=== PATIENT | female | born 1960 | race Caucasian/White ===

== ENCOUNTER 2016-07-08 07:06 | Day surgery (SDC) | payer BC ==
[~2016-07-08 07:06] MED LIST: Lactated Ringers 1,000 ML IV SCH
[2016-07-08] MEDS ORDERED: Lidocaine 2% 5 ML SDV ONE (07:11)
[2016-07-08] MEDS ORDERED: fentaNYL 100 MCG/2 ML SDV ONE ×2 (07:12→10:02)
[2016-07-08] MEDS ORDERED: Propofol 200 MG/20 ML SDV ONE ×4 (07:12→09:46)
--- NOTE | 2016-07-08 07:34 | PCM.PREANE ---
Preanesthetic Assessment - Anesthesia/Transfusion/Family Hx Anesthesia History: Prior Anesthesia Without Reaction Other Type of Anesthesia Reaction Comment: Nausea post anesthesia, reports history of some motion sickness Family History of Anesthesia Reaction: No Transfusion History: No Prior Transfusion(s) - Review of Systems General: No Symptoms Pulmonary: No Symptoms Cardiovascular: No Symptoms Gastrointestinal: No symptoms Neurological: No Symptoms Other: Reports: Anxiety - Physical Assessment NPO Status Date: 07/07/16 O2 Sat by Pulse Oximetry: 96 Respiratory Rate: 16 Vital Signs: Last Vital Signs Temp 36.4 C 07/08/16 07:20 Pulse 74 07/08/16 07:20 Resp 16 07/08/16 07:20 BP 128/73 07/08/16 07:20 Pulse Ox 96 07/08/16 07:20 Height: 1.7 m Weight: 121.563 kg ASA Class: 2 Mental Status: Alert & Oriented x3 Airway Class: Mallampati = 2 Dentition: Reports: Normal Dentition ROM/Head Extension: Full Lungs: Clear to auscultation Cardiovascular: Regular Rate - Allergies Allergies/Adverse Reactions: Allergies Allergy/AdvReac Type Severity Reaction Status Date / Time No Known Allergies Allergy Verified 08/10/13 14:48 - Acknowledgements Anesthesia Type Planned: MAC Pt an Appropriate Candidate for the Planned Anesthesia: Yes Alternatives and Risks of Anesthesia Discussed w Pt/Guardian: Yes Pt/Guardian Understands and Agrees with Anesthesia Plan: Yes PreAnesthesia Questionnaire HEENT History: Reports: Allergic rhinitis, Other (see below) Other HEENT History: wears glasses Cardiovascular History: Reports: Heart murmur Other Cardiovascular History: states hx of murmur Gastrointestinal History: Reports: Colon polyp, GERD Genitourinary History: Reports: None [employer]IC History: Reports: Musculoskeletal History: Reports: Arthritis Psychiatric History: Reports: Anxiety Endocrine/Metabolic History: Reports: Obesity/BMI 30+ - Past Surgical History Head Surgeries/Procedures: Reports: None HEENT Surgical History: Reports: Tonsillectomy GI Surgical History: Reports: Colonoscopy Female Surgical History: Reports: Endometrial ablation, Tubal ligation Musculoskeletal Surgical History: Reports: Knee replacement Other Musculoskeletal Surgeries/Procedures:: ana luisa knee replacement - SUBSTANCE USE Smoking Status *Q: Current Every Day Smoker Tobacco Use Within Last Twelve Months: Cigarettes Days Per Week of Alcohol Use: 0 Number of Drinks Per Day: 0 Total Drinks Per Week: 0 Recreational Drug Use History: No - HOME MEDS Home Medications: Home Meds LORazepam [Ativan] 1 mg PO ASDIRECTED PRN 09/23/13 [History] Ibuprofen 2 tab PO ASDIRECTED PRN 07/03/16 [History] - CURRENT (IN HOUSE) MEDS Current Meds: Current Medications Lactated Ringer's (Ringers, Lactated) 1,000 mls @ 125 mls/hr IV ASDIRECTED DARA Last Admin: 07/08/16 07:24 Dose: 125 mls/hr Discontinued Medications Fentanyl (Sublimaze) Confirm Administered Dose 100 mcg .ROUTE .STK-MED ONE Stop: 07/08/16 07:13 Lidocaine (Xylocaine-Mpf 2%) Confirm Administered Dose 5 ml .ROUTE .STK-MED ONE Stop: 07/08/16 07:12 Propofol (Diprivan 20 Ml) Confirm Administered Dose 400 mg .ROUTE .STK-MED ONE Stop: 07/08/16 07:13 Preanesthetic Assessment - ANESTHESIA/TRANSFUSION/FAMILY HX Anesthesia/Transfusion History: Prior Anesthesia Other Type of Anesthesia Reaction Comment: Nausea post anesthesia, reports history of some motion sickness Family History of Anesthesia Reaction: No - PHYSICAL ASSESSMENT O2 Sat by Pulse Oximetry: 96 RR: 16 Vital Signs: Last Vital Signs Temp 36.4 C 07/08/16 07:20 Pulse 74 07/08/16 07:20 Resp 16 07/08/16 07:20 BP 128/73 07/08/16 07:20 Pulse Ox 96 07/08/16 07:20 Height: 1.7 m Weight: 121.563 kg - ALLERGIES Allergies/Adverse Reactions: Allergies Allergy/AdvReac Type Severity Reaction Status Date / Time No Known Allergies Allergy Verified 08/10/13 14:48
[2016-07-08] MEDS ORDERED: Midazolam 1 MG/ML 2 ML SDV ONE (08:37)
[2016-07-08] MEDS ORDERED: cefOXitin 2 GM in Premix Bag 1 BAG IV ONE (08:42)
[2016-07-08] MEDS ORDERED: cefOXitin 1 GM Vial ONE (08:42)
[2016-07-08] MEDS ORDERED: Phenylephrine/Normal Saline 100 MCG/ML 10 ML Syringe ONE (09:05)
[2016-07-08] MEDS ORDERED: ePHEDrine 50 MG/ML SDV ONE (09:44)
--- NOTE | 2016-07-08 10:20 | PCM.OPNOTE ---
- General Post-Op/Procedure Note Date of Surgery/Procedure: 07/08/16 Operative Procedure(s): Colonoscopy with snare ascending colon polypectomy, cold ascending colon polypectomy x3, cold ascending colon polypectomy x2, and cold sigmoid polypectomy. Pre Op Diagnosis: Personal history of colon polyps Post-Op Diagnosis: Ascending colon polyps x4. Descending colon polyps x2. Sigmoid polyp. Anesthesia Technique: MAC (ASA II) Primary Surgeon: Terry Ferrer Condition: Good Free Text/Narrative:: Dictation [id number]
[2016-07-08] MEDS ORDERED: Lactated Ringers 1,000 ML IV SCH (10:30)
[2016-07-08 10:31] VITALS: BP 115/71
--- NOTE | 2016-07-08 10:41 | PCM.POSTAN ---
POST ANESTHESIA ASSESSMENT - MENTAL STATUS Mental Status: alert, oriented - RESPIRATORY Respiratory Status: respiratory rate WNL - CARDIOVASCULAR CV Status: pulse rate WNL - GASTROINTESTINAL GI Status: no symptoms - POST OP HYDRATION Hydration Status: adequate & stable
--- NOTE | 2016-07-08 10:42 | PCM48HPAN ---
Post Anesthesia Note - EVALUATION WITHIN 48HRS OF ANESTHETIC Vital Signs in Normal Range: Yes Patient Participated in Evaluation: Yes Respiratory Function Stable: Yes Airway Patent: Yes Cardiovascular Function Stable: Yes Hydration Status Stable: Yes Pain Control Satisfactory: Yes Nausea and Vomiting Control Satisfactory: Yes Mental Status Recovered: Yes
--- NOTE | 2016-07-08 14:17 | OR ---
SURGEON: Terry Ferrer M.D. DATE OF PROCEDURE: 07/08/2016 OPERATION PERFORMED: Colonoscopy with snare ascending colon polypectomy and cold ascending colon polypectomy x3, cold descending colon polypectomy x2, and cold sigmoid colonoscopy. ANESTHESIA: MAC. ASA CLASSIFICATION: II. PREOPERATIVE DIAGNOSIS: Personal history of colon polyps. POSTOPERATIVE DIAGNOSIS: Multiple ascending colon, descending colon, and sigmoid polyp. DESCRIPTION OF PROCEDURE: The patient was taken to the endoscopy room, positioned on the endoscopy table in the left lateral decubitus position. Time-out was called for appropriate identification of the patient and procedure. Monitored anesthesia care was provided. The colonoscope was inserted into the rectum and advanced with moderate difficulty to the cecum, where the colonoscope was retroflexed to visualize the ascending colon from below. The colonoscope was then straightened and slowly withdrawn. The patient had multiple polyps in the ascending colon. The largest one was removed with a snare electrocautery. Smaller polyps were removed with the cold biopsy forceps. Hepatic flexure, transverse colon, and splenic flexure showed no tumors, polyps, diverticula, or angiodysplastic changes. Polyps were again encountered in the descending colon and sigmoid colon and removed separately and sent separately with the cold biopsy forceps. A few small scattered sigmoid diverticula were noted. The colonoscope was withdrawn to the rectum. No polyps were encountered in the rectum. The colonoscope was retroflexed to visualize the anal orifice from above. No tumors or polyps were seen and no acute hemorrhoidal changes were noted. The colonoscope was then straightened, the rectum aspirated, and the colonoscope was removed. The patient tolerated the procedure well and was taken to recovery room in stable condition. EDILBERTO ACHARYA /[id number]
== END 2016-07-08 10:50 | disposition home or self-care (01) ==
LOC: MW.SDS 07:06
PROVIDERS: ATTEND Surgery
PROC: 0DBM8ZZ Excision of Descending Colon, Via Natural or Artificial Opening Endoscopic (ICD-10-PCS; principal; 2016-07-08)
PROC: 0DBN8ZZ Excision of Sigmoid Colon, Via Natural or Artificial Opening Endoscopic (ICD-10-PCS; 2016-07-08)
PROC: 0DBK8ZZ Excision of Ascending Colon, Via Natural or Artificial Opening Endoscopic (ICD-10-PCS; 2016-07-08)
DX: D12.2 Benign neoplasm of ascending colon (principal); D12.4 Benign neoplasm of descending colon; K63.5 Polyp of colon; K57.30 Diverticulosis of large intestine without perforation or abscess without bleeding; F41.9 Anxiety disorder, unspecified; E66.01 Morbid (severe) obesity due to excess calories; M17.0 Bilateral primary osteoarthritis of knee; F17.210 Nicotine dependence, cigarettes, uncomplicated; Z86.19 Personal history of other infectious and parasitic diseases; Z86.010 Personal history of colon polyps; Z80.0 Family history of malignant neoplasm of digestive organs; Z96.653 Presence of artificial knee joint, bilateral; Z98.51 Tubal ligation status; Z98.890 Other specified postprocedural states; Z68.41 Body mass index [BMI] 40.0-44.9, adult
CPT/HCPCS: 45380; 45385; J0694; J2250; J3010; J7120; 88305; J2704

== ENCOUNTER 2017-07-28 09:51 | Day surgery (SDC) | payer BC ==
[~2017-07-28 09:51] MED LIST changes: +Midazolam 1 MG/ML 2 ML SDV ONE; +Propofol 200 MG/20 ML SDV ONE; +fentaNYL 100 MCG/2 ML SDV ONE
--- NOTE | 2017-07-28 10:34 | PCM.PREANE ---
Preanesthetic Assessment - Anesthesia/Transfusion/Family Hx Anesthesia History: Prior Anesthesia Without Reaction Other Type of Anesthesia Reaction Comment: Nausea post anesthesia, reports history of some motion sickness Family History of Anesthesia Reaction: No Transfusion History: No Prior Transfusion(s) Intubation History: Unknown - Review of Systems General: No Symptoms Pulmonary: No Symptoms Cardiovascular: No Symptoms Gastrointestinal: Other (h/o multiple colon polyps '16) Neurological: No Symptoms Other: Reports: None - Physical Assessment Height: 1.7 m Weight: 118.841 kg ASA Class: 2 Mental Status: Alert & Oriented x3 Airway Class: Mallampati = 2 Dentition: Reports: Normal Dentition, Claflin(s) (x2 upper front) Thyro-Mental Finger Breadths: 2 Mouth Opening Finger Breadths: 3 ROM/Head Extension: Full Lungs: Clear to Auscultation, Normal Respiratory Effort Cardiovascular: Regular Rate, Regular Rhythm - Allergies Allergies/Adverse Reactions: Allergies Allergy/AdvReac Type Severity Reaction Status Date / Time No Known Allergies Allergy Verified 07/23/17 09:20 - Blood Blood Available: No - Anesthesia Plan Pre-Op Medication Ordered: None - Acknowledgements Anesthesia Type Planned: MAC Pt an Appropriate Candidate for the Planned Anesthesia: Yes Alternatives and Risks of Anesthesia Discussed w Pt/Guardian: Yes Pt/Guardian Understands and Agrees with Anesthesia Plan: Yes PreAnesthesia Questionnaire HEENT History: Reports: Allergic Rhinitis, Other (See Below) Other HEENT History: wears glasses Cardiovascular History: Reports: Heart Murmur Other Cardiovascular History: states hx of murmur Gastrointestinal History: Reports: Colon Polyp (multiple '16), GERD Genitourinary History: Reports: None [employer]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: Musculoskeletal History: Reports: Arthritis Psychiatric History: Reports: Anxiety Endocrine/Metabolic History: Reports: Obesity/BMI 30+ - Past Surgical History Head Surgeries/Procedures: Reports: None HEENT Surgical History: Reports: Tonsillectomy GI Surgical History: Reports: Colonoscopy () Female Surgical History: Reports: Section, Endometrial Ablation, Tubal Ligation Musculoskeletal Surgical History: Reports: Knee Replacement Other Musculoskeletal Surgeries/Procedures:: ana luisa knee replacement - SUBSTANCE USE Smoking Status *Q: Current Every Day Smoker (1 ppd) Tobacco Use Within Last Twelve Months: Cigarettes Days Per Week of Alcohol Use: 0 Number of Drinks Per Day: 0 Total Drinks Per Week: 0 Recreational Drug Use History: No - HOME MEDS Home Medications: Home Meds LORazepam [Ativan] 1 mg PO ASDIRECTED PRN 09/23/13 [History] Ibuprofen 2 tab PO ASDIRECTED PRN 07/03/16 [History] - CURRENT (IN HOUSE) MEDS Current Meds: Current Medications Lactated Ringer's (Ringers, Lactated) 1,000 mls @ 125 mls/hr IV ASDIRECTED DARA Last Admin: 07/28/17 10:26 Dose: 125 mls/hr Discontinued Medications Fentanyl (Sublimaze) Confirm Administered Dose 100 mcg .ROUTE .STK-MED ONE Stop: 07/28/17 08:28 Midazolam HCl (Versed 1 Mg/Ml) Confirm Administered Dose 2 mg .ROUTE .STK-MED ONE Stop: 07/28/17 08:28 Propofol (Diprivan 20 Ml) Confirm Administered Dose 200 mg .ROUTE .STK-MED ONE Stop: 07/28/17 08:28
[2017-07-28] MEDS ORDERED: cefOXitin 1 GM Vial ONE (11:25)
[2017-07-28] MEDS ORDERED: Propofol 200 MG/20 ML SDV ONE ×3 (11:27→11:50)
[2017-07-28] MEDS ORDERED: Midazolam 1 MG/ML 2 ML SDV ONE (11:31)
[2017-07-28] MEDS ORDERED: Lactated Ringers 1,000 ML IV SCH (12:15)
--- NOTE | 2017-07-28 12:18 | PCM.OPNOTE ---
- General Post-Op/Procedure Note Date of Surgery/Procedure: 07/28/17 Operative Procedure(s): Colonoscopy with multiple cold ascending colon, sigmoid colon and rectal polypectomies Pre Op Diagnosis: Personal history of colon polyps Post-Op Diagnosis: Ascending colon, sigmoid and rectal polyps. Anesthesia Technique: MAC (ASA III) Primary Surgeon: Terry Ferrer Condition: Good Free Text/Narrative:: Dictation [id number] CPT CODE [id number]
--- NOTE | 2017-07-28 12:43 | PCM48HPAN ---
Post Anesthesia Note - EVALUATION WITHIN 48HRS OF ANESTHETIC Vital Signs in Normal Range: Yes Patient Participated in Evaluation: Yes Respiratory Function Stable: Yes Airway Patent: Yes Cardiovascular Function Stable: Yes Hydration Status Stable: Yes Pain Control Satisfactory: Yes Nausea and Vomiting Control Satisfactory: Yes Mental Status Recovered: Yes Resp Rate: 12 - COMMENTS/OBSERVATIONS Free Text/Narrative:: no anesthesia problems
[2017-07-28 13:04] VITALS: BP 111/69
--- NOTE | 2017-07-28 13:42 | OR ---
SURGEON: Terry Ferrer M.D. DATE OF PROCEDURE: 07/28/2017 OPERATION PERFORMED: Colonoscopy with multiple cold polypectomies from the ascending colon, sigmoid colon, and rectum. ANESTHESIA: MAC. ASA CLASSIFICATION: III. PREOPERATIVE DIAGNOSES: 1. Personal history of colon polyps. 2. Family history of colon cancer. POSTOPERATIVE DIAGNOSIS: Multiple polyps in the ascending colon, sigmoid colon, and rectum. DESCRIPTION OF PROCEDURE: The patient was taken to the endoscopy room and positioned on the endoscopy table in the left lateral decubitus position. Time-out was called for appropriate identification of the patient and procedure. Monitored anesthesia care was provided. The colonoscope was inserted into the rectum and advanced with moderate difficulty to the cecum where the colonoscope was retroflexed to visualize the ascending colon from below. The cecum was identified by internal landmarks and external pressure. At least three polyps were encountered in the ascending colon and removed with the cold biopsy forceps. The remainder of the ascending colon, hepatic flexure, transverse colon, splenic flexure showed no tumors, polyps, diverticula, or angiodysplastic changes. Several polyps were encountered in the sigmoid colon as the scope was withdrawn and again removed with the cold biopsy forceps. No diverticular changes were noted. There was no stricture or spasm noted in the sigmoid colon. Once the colonoscope was withdrawn to the rectum, again polyps were encountered and removed with the cold biopsy forceps. Once the colonoscope was withdrawn to the distal rectum, it was retroflexed to visualize the anal orifice from above. No tumors, polyps, or acute hemorrhoidal changes were noted. The colonoscope was then straightened, the rectum aspirated, and the colonoscope removed. The patient tolerated the procedure well and was taken to recovery room in stable condition. EDILBERTO / MARCK /[id number]
== END 2017-07-28 12:35 | disposition home or self-care (01) ==
LOC: MW.SDS 09:51
PROVIDERS: ATTEND Surgery
DX: Z09 Encounter for follow-up examination after completed treatment for conditions other than malignant neoplasm (principal); D12.2 Benign neoplasm of ascending colon; K63.5 Polyp of colon; K62.1 Rectal polyp; K21.9 Gastro-esophageal reflux disease without esophagitis; M19.90 Unspecified osteoarthritis, unspecified site; F41.9 Anxiety disorder, unspecified; F17.210 Nicotine dependence, cigarettes, uncomplicated; E66.01 Morbid (severe) obesity due to excess calories; Z68.41 Body mass index [BMI] 40.0-44.9, adult; Z86.010 Personal history of colon polyps; Z80.0 Family history of malignant neoplasm of digestive organs
CPT/HCPCS: 00811; 88305; J0694; J2250; J2704; J3010; J7120

== ENCOUNTER 2017-09-07 11:01 | Emergency (ER) | payer BC ==
[2017-09-07 11:12] VITALS: BP 114/61
--- NOTE | 2017-09-07 11:27 | EDM.PDOC ---
ED HPI GENERAL MEDICAL PROBLEM - General Chief Complaint: Respiratory Problem Stated Complaint: COUGH Time Seen by Provider: 09/07/17 11:15 - History of Present Illness INITIAL COMMENTS - FREE TEXT/NARRATIVE: HISTORY AND PHYSICAL: History of present illness: The patient is a 57-year-old female who presents with a three-month history of sinus congestion and drainage sore throat and swollen glands in an occasional cough without abdominal pain vomiting or diarrhea or objective fevers and requests care. The patient says she has a provider at [facility], Dr. Marley, but she has not scheduled to see him because she felt the symptoms will go away . The patient denies any ill contacts and has no chronic medical problems. She's been eating and drinking normally but there is pain with swallowing. The patient says she has tried some [id number] meds and that has not helped. The patient has a history of a tonsillectomy in the past and she is not feeling rundown or overly weak and lightheaded or dizzy. Review of systems: As per history of present illness and below otherwise all systems reviewed and negative. Past medical history: As per history of present illness and as reviewed below otherwise noncontributory. Surgical history: As per history of present illness and as reviewed below otherwise noncontributory. Social history: No reported history of drug or alcohol abuse. Family history: As per history of present illness and as reviewed below otherwise noncontributory. Physical exam: General: Well-developed well-nourished female who is nontoxic and is not breathless with speaking nor is her voice hoarse. She does have nasal quality to voice. HEENT: Atraumatic, normocephalic, pupils reactive, negative for conjunctival pallor or scleral icterus, mucous membranes moist, throat clear of exudates and uvula is midline, there is minimal oropharyngeal erythema there is minimal cervical adenopathy no posterior adenopathy and no nuchal rigidity, there is minimal sinus tenderness on palpation, the nasal turbinates are boggy bilaterally left greater than right, neck supple, nontender, trachea midline. Lungs: Clear to auscultation, breath sounds equal bilaterally, chest nontender. Heart: S1S2, regular rate and rhythm no overt murmurs Abdomen: Soft nondistended nontender on palpation and bowel sounds are normoactive Pelvis: Deferred Genitourinary: Deferred. Rectal: Deferred. Extremities: Atraumatic, negative for cords or calf pain. Neurovascular unremarkable. Neuro: Awake, alert, oriented. Cranial nerves II through XII unremarkable. Cerebellum unremarkable. Motor and sensory unremarkable throughout. Exam nonfocal. Diagnostics: [] Therapeutics: [] Impression: Sinusitis/rhinitis/pharyngitis Definitive disposition and diagnosis as appropriate pending reevaluation and review of above. ribs Pain Score (Numeric/FACES): 3 - Related Data Allergies Allergy/AdvReac Type Severity Reaction Status Date / Time No Known Allergies Allergy Verified 09/07/17 11:10 Home Meds: Home Meds LORazepam [Ativan] 1 mg PO ASDIRECTED PRN 09/23/13 [History] Ibuprofen 2 tab PO ASDIRECTED PRN 07/03/16 [History] Past Medical History HEENT History: Reports: Allergic Rhinitis, Other (See Below) Other HEENT History: wears glasses Cardiovascular History: Reports: Heart Murmur Other Cardiovascular History: states hx of murmur Respiratory History: Reports: None Gastrointestinal History: Reports: Colon Polyp, GERD Genitourinary History: Reports: None [employer]OC[employer] 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: Reports: Musculoskeletal History: Reports: Arthritis Neurological History: Reports: None Psychiatric History: Reports: Anxiety Endocrine/Metabolic History: Reports: Obesity/BMI 30+ Hematologic History: Reports: None Immunologic History: Reports: None Oncologic (Cancer) History: Reports: None Dermatologic History: Reports: None - Past Surgical History Head Surgeries/Procedures: Reports: None HEENT Surgical History: Reports: Tonsillectomy Cardiovascular Surgical History: Reports: None Respiratory Surgical History: Reports: None GI Surgical History: Reports: Colonoscopy Female Surgical History: Reports: Section, Endometrial Ablation, Tubal Ligation Endocrine Surgical History: Reports: None Neurological Surgical History: Reports: None Musculoskeletal Surgical History: Reports: Knee Replacement Other Musculoskeletal Surgeries/Procedures:: ana luisa knee replacement Oncologic Surgical History: Reports: None Dermatological Surgical History: Reports: None Social & Family History - Family History Family Medical History: Noncontributory - Tobacco Use Smoking Status *Q: Current Every Day Smoker Years of Tobacco use: 20 Packs/Tins Daily: 0.2 - Caffeine Use Caffeine Use: Reports: Coffee - Recreational Drug Use Recreational Drug Use: No ED ROS GENERAL - Review of Systems Review Of Systems: ROS reveals no pertinent complaints other than HPI. ED EXAM, GENERAL - Physical Exam Exam: See Below (See dictation) Course - Vital Signs Last Recorded V/S: Last Vital Signs Temp 36.3 C 09/07/17 11:10 Pulse 91 09/07/17 11:10 Resp 18 09/07/17 11:10 BP 114/61 09/07/17 11:10 Pulse Ox 95 09/07/17 11:10 Departure - Departure Time of Disposition: 11:25 Disposition: Home, Self-Care 01 Condition: Good Clinical Impression: Pharyngitis Qualifiers: Pharyngitis/tonsillitis etiology: unspecified etiology Qualified Code(s): J02.9 - Acute pharyngitis, unspecified Sinusitis Qualifiers: Sinusitis location: unspecified location Chronicity: unspecified Qualified Code (s): J32.9 - Chronic sinusitis, unspecified - Discharge Information Additional Instructions: The following information is given to patients seen in the emergency department who are being discharged to home. This information is to outline your options for follow-up care. We provide all patients seen in our emergency department with a follow-up referral. The need for follow-up, as well as the timing and circumstances, are variable depending upon the specifics of your emergency department visit. If you don't have a primary care physician on staff, we will provide you with a referral. We always advise you to contact your personal physician following an emergency department visit to inform them of the circumstance of the visit and for follow-up with them and/or the need for any referrals to a consulting specialist. The emergency department will also refer you to a specialist when appropriate. This referral assures that you have the opportunity for followup care with a specialist. All of these measure are taken in an effort to provide you with optimal care, which includes your followup. Under all circumstances we always encourage you to contact your private physician who remains a resource for coordinating your care. When calling for followup care, please make the office aware that this follow-up is from your recent emergency room visit. If for any reason you are refused follow-up, please contact the [facility] emergency department at and ask to speak to the emergency department charge nurse. [address] [place] [address] [facility] Primary care- Internal Medicine and Family [place] [id number] [place] [address] Push fluids and rest and use [id number] Tylenol or ibuprofen for fevers and pain. Please take antibiotics until they are finished. Use [id number] Claritin or Nicolasa to help dry her sinuses out an [id number] Flonase to open up the nasal passages and promote drainage. Please call and follow-up with your provider in the clinic at [place] or one of our providers in the next few days for reevaluation and return here as needed and as discussed
--- NOTE | 2017-09-07 12:01 | EDM.PDOC ---
ED HPI GENERAL MEDICAL PROBLEM - General Chief Complaint: Respiratory Problem Stated Complaint: COUGH Time Seen by Provider: 09/07/17 11:15 - History of Present Illness INITIAL COMMENTS - FREE TEXT/NARRATIVE: HISTORY AND PHYSICAL: 57-year-old female presenting with coughing for the last 10 days History of present illness: History nonproductive she has been a smoker but he really has not smoked for the last 10 days she's been sick she's having wheezing at night She has utilized some Benadryl [id number] without relief. Review of systems: As per history of present illness and below otherwise all systems reviewed and negative. Past medical history: As per history of present illness and as reviewed below otherwise noncontributory. Surgical history: As per history of present illness and as reviewed below otherwise noncontributory. Social history: No reported history of drug or alcohol abuse. Family history: As per history of present illness and as reviewed below otherwise noncontributory. Physical exam: General: Well-developed well-nourished female who is nontoxic and is not breathless with speaking nor is her voice hoarse. She does have nasal quality to voice. She does cough after speaking to sentences. HEENT: Atraumatic, normocephalic, pupils reactive, negative for conjunctival pallor or scleral icterus, mucous membranes moist, throat clear of exudates and uvula is midline, there is minimal oropharyngeal erythema there is minimal cervical adenopathy no posterior adenopathy and no nuchal rigidity, there is minimal sinus tenderness on palpation, , neck supple, nontender, trachea midline. Lungs: Crackles and wheezing on auscultation, breath sounds equal bilaterally, chest nontender. Heart: S1S2, regular rate and rhythm no overt murmurs Abdomen: Soft nondistended nontender on palpation and bowel sounds are normoactive Pelvis: Deferred Genitourinary: Deferred. Rectal: Deferred. Extremities: Atraumatic, negative for cords or calf pain. Neurovascular unremarkable. Neuro: Awake, alert, oriented. Cranial nerves II through XII unremarkable. Cerebellum unremarkable. Motor and sensory unremarkable throughout. Exam nonfocal. Diagnostics: [] Therapeutics: [] Impression: Acute bronchiolitis Wheezing Plan: Discharge to home Medrol Dosepak Zithromax Diflucan Definitive disposition and diagnosis as appropriate pending reevaluation and review of above. Onset: Gradual Duration: Day(s): (10) Location: Reports: Chest Quality: Reports: Ache Severity: Moderate Improves with: Reports: None Worsens with: Reports: None ribs Pain Score (Numeric/FACES): 3 - Related Data Allergies Allergy/AdvReac Type Severity Reaction Status Date / Time No Known Allergies Allergy Verified 09/07/17 11:10 Home Meds: Home Meds LORazepam [Ativan] 1 mg PO ASDIRECTED PRN 09/23/13 [History] Ibuprofen 2 tab PO ASDIRECTED PRN 07/03/16 [History] Azithromycin [Zithromax] 250 mg PO DAILY #6 tab 09/07/17 [Rx] methylPREDNISolone [Medrol] 4 mg PO ASDIRECTED #1 dosepk 09/07/17 [Rx] Past Medical History HEENT History: Reports: Allergic Rhinitis, Other (See Below) Other HEENT History: wears glasses Cardiovascular History: Reports: Heart Murmur Other Cardiovascular History: states hx of murmur Respiratory History: Reports: None Gastrointestinal History: Reports: Colon Polyp, GERD Genitourinary History: Reports: None DIRECTOR OF INSTITUTIONAL GIVING History: Reports: Musculoskeletal History: Reports: Arthritis Neurological History: Reports: None Psychiatric History: Reports: Anxiety Endocrine/Metabolic History: Reports: Obesity/BMI 30+ Hematologic History: Reports: None Immunologic History: Reports: None Oncologic (Cancer) History: Reports: None Dermatologic History: Reports: None - Past Surgical History Head Surgeries/Procedures: Reports: None HEENT Surgical History: Reports: Tonsillectomy Cardiovascular Surgical History: Reports: None Respiratory Surgical History: Reports: None GI Surgical History: Reports: Colonoscopy Female Surgical History: Reports: Section, Endometrial Ablation, Tubal Ligation Endocrine Surgical History: Reports: None Neurological Surgical History: Reports: None Musculoskeletal Surgical History: Reports: Knee Replacement Other Musculoskeletal Surgeries/Procedures:: ana luisa knee replacement Oncologic Surgical History: Reports: None Dermatological Surgical History: Reports: None Social & Family History - Family History Family Medical History: Noncontributory - Tobacco Use Smoking Status *Q: Current Every Day Smoker Years of Tobacco use: 20 Packs/Tins Daily: 0.2 - Caffeine Use Caffeine Use: Reports: Coffee - Recreational Drug Use Recreational Drug Use: No ED ROS GENERAL - Review of Systems Review Of Systems: ROS reveals no pertinent complaints other than HPI. ED EXAM, GENERAL - Physical Exam Exam: See Below (see dictation) Free Text/Narrative:: HISTORY AND PHYSICAL: History of present illness: The patient is a 57-year-old female who presents with a three-month history of sinus congestion and drainage sore throat and swollen glands in an occasional cough without abdominal pain vomiting or diarrhea or objective fevers and requests care. The patient says she has a provider at [facility], Dr. Marley, but she has not scheduled to see him because she felt the symptoms will go away . The patient denies any ill contacts and has no chronic medical problems. She's been eating and drinking normally but there is pain with swallowing. The patient says she has tried some [id number]-[id number] meds and that has not helped. The patient has a history of a tonsillectomy in the past and she is not feeling rundown or overly weak and lightheaded or dizzy. Review of systems: As per history of present illness and below otherwise all systems reviewed and negative. Past medical history: As per history of present illness and as reviewed below otherwise noncontributory. Surgical history: As per history of present illness and as reviewed below otherwise noncontributory. Social history: No reported history of drug or alcohol abuse. Family history: As per history of present illness and as reviewed below otherwise noncontributory. Physical exam: General: Well-developed well-nourished female who is nontoxic and is not breathless with speaking nor is her voice hoarse. She does have nasal quality to voice. HEENT: Atraumatic, normocephalic, pupils reactive, negative for conjunctival pallor or scleral icterus, mucous membranes moist, throat clear of exudates and uvula is midline, there is minimal oropharyngeal erythema there is minimal cervical adenopathy no posterior adenopathy and no nuchal rigidity, there is minimal sinus tenderness on palpation, the nasal turbinates are boggy bilaterally left greater than right, neck supple, nontender, trachea midline. Lungs: Clear to auscultation, breath sounds equal bilaterally, chest nontender. Heart: S1S2, regular rate and rhythm no overt murmurs Abdomen: Soft nondistended nontender on palpation and bowel sounds are normoactive Pelvis: Deferred Genitourinary: Deferred. Rectal: Deferred. Extremities: Atraumatic, negative for cords or calf pain. Neurovascular unremarkable. Neuro: Awake, alert, oriented. Cranial nerves II through XII unremarkable. Cerebellum unremarkable. Motor and sensory unremarkable throughout. Exam nonfocal. Diagnostics: [] Therapeutics: [] Impression: Sinusitis/rhinitis/pharyngitis Definitive disposition and diagnosis as appropriate pending reevaluation and review of above. Course - Vital Signs Last Recorded V/S: Last Vital Signs Temp 36.3 C 09/07/17 11:10 Pulse 91 09/07/17 11:10 Resp 18 09/07/17 11:10 BP 114/61 09/07/17 11:10 Pulse Ox 95 09/07/17 11:10 Departure - Departure Time of Disposition: 11:58 Disposition: Home, Self-Care 01 Condition: Good Clinical Impression: Bronchitis - Discharge Information Prescriptions: Azithromycin [Zithromax] 250 mg PO DAILY #6 tab methylPREDNISolone [Medrol] 4 mg PO ASDIRECTED #1 dosepk Instructions: Shortness of Breath, Adult, [id number], Upper Respiratory Infection, Adult, [id number] Referrals: PCP,Unknown [Primary Care Provider] - Forms: ED Department Discharge Additional Instructions: The following information is given to patients seen in the emergency department who are being discharged to home. This information is to outline your options for follow-up care. We provide all patients seen in our emergency department with a follow-up referral. The need for follow-up, as well as the timing and circumstances, are variable depending upon the specifics of your emergency department visit. If you don't have a primary care physician on staff, we will provide you with a referral. We always advise you to contact your personal physician following an emergency department visit to inform them of the circumstance of the visit and for follow-up with them and/or the need for any referrals to a consulting specialist. The emergency department will also refer you to a specialist when appropriate. This referral assures that you have the opportunity for followup care with a specialist. All of these measure are taken in an effort to provide you with optimal care, which includes your followup. Under all circumstances we always encourage you to contact your private physician who remains a resource for coordinating your care. When calling for followup care, please make the office aware that this follow-up is from your recent emergency room visit. If for any reason you are refused follow-up, please contact the [facility] emergency department at and ask to speak to the emergency department charge nurse. [facility] [address] [place] [address] [place] [address] [facility] Primary care- Internal Medicine and Family [place] [id number] [place] [id number] You were found to have bronchitis EScription for a Medrol Dosepak to reduce the edema and stop your wheezing EScription for Zithromax antibiotic Follow-up with your primary care provider Return to the emergency department as requested and discussed Carlyn that you continue to refrain from smoking
== END 2017-09-07 12:16 | disposition home or self-care (01) ==
LOC: MW.ED 11:01
DX: J21.9 Acute bronchiolitis, unspecified (principal); J40 Bronchitis, not specified as acute or chronic; F17.210 Nicotine dependence, cigarettes, uncomplicated
CPT/HCPCS: 99282

== ENCOUNTER 2019-09-13 08:32 | Day surgery (SDC) | payer BC ==
[~2019-09-13 08:32] MED LIST changes: -Midazolam 1 MG/ML 2 ML SDV ONE; -Propofol 200 MG/20 ML SDV ONE; +cefOXitin 2 GM in Premix Bag 1 BAG IV ONE; -fentaNYL 100 MCG/2 ML SDV ONE
--- NOTE | 2019-09-13 09:29 | PCM.PREANE ---
Preanesthetic Assessment - Anesthesia/Transfusion/Family Hx Anesthesia History: Prior Anesthesia Without Reaction Other Type of Anesthesia Reaction Comment: Nausea post anesthesia, reports history of some motion sickness Family History of Anesthesia Reaction: No Transfusion History: No Prior Transfusion(s) Intubation History: Unknown - Review of Systems General: No Symptoms Pulmonary: No Symptoms Cardiovascular: No Symptoms Gastrointestinal: No Symptoms Neurological: No Symptoms - Physical Assessment NPO Status Date: 09/12/19 Height: 5 ft 7 in Weight: 115.666 kg ASA Class: 2 Mental Status: Alert & Oriented x3 Airway Class: Mallampati = 2 Dentition: Reports: Normal Dentition ROM/Head Extension: Full Lungs: Clear to Auscultation, Normal Respiratory Effort Cardiovascular: Regular Rate, Regular Rhythm - Allergies Allergies/Adverse Reactions: Allergies Allergy/AdvReac Type Severity Reaction Status Date / Time No Known Allergies Allergy Verified 09/09/19 09:31 - Blood Blood Available: No - Anesthesia Plan Pre-Op Medication Ordered: None - Acknowledgements Anesthesia Type Planned: General Anesthesia (tiva) Pt an Appropriate Candidate for the Planned Anesthesia: Yes Alternatives and Risks of Anesthesia Discussed w Pt/Guardian: Yes Pt/Guardian Understands and Agrees with Anesthesia Plan: Yes Additional Comments: PMH: MO, smoker, anxiety-on ativan, s/p bilat TKA PreAnesthesia Questionnaire HEENT History: Reports: Allergic Rhinitis, Other (See Below) Other HEENT History: wears glasses Cardiovascular History: Reports: None Respiratory History: Reports: None Gastrointestinal History: Reports: Colon Polyp, GERD Genitourinary History: Reports: None 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: Musculoskeletal History: Reports: Arthritis Neurological History: Reports: None Psychiatric History: Reports: Anxiety Endocrine/Metabolic History: Reports: Obesity/BMI 30+ Hematologic History: Reports: None Immunologic History: Reports: None Oncologic (Cancer) History: Reports: None Dermatologic History: Reports: None - Past Surgical History Head Surgeries/Procedures: Reports: None HEENT Surgical History: Reports: Tonsillectomy Cardiovascular Surgical History: Reports: None Respiratory Surgical History: Reports: None GI Surgical History: Reports: Colonoscopy Female Surgical History: Reports: Section, Endometrial Ablation, Tubal Ligation Endocrine Surgical History: Reports: None Neurological Surgical History: Reports: None Musculoskeletal Surgical History: Reports: Knee Replacement Other Musculoskeletal Surgeries/Procedures:: ana luisa knee replacement Oncologic Surgical History: Reports: None Dermatological Surgical History: Reports: None - SUBSTANCE USE Smoking Status *Q: Current Every Day Smoker Tobacco Use Within Last Twelve Months: Cigarettes - HOME MEDS Home Medications: Home Meds LORazepam [Ativan] 1 mg PO ASDIRECTED PRN 09/23/13 [History] - CURRENT (IN HOUSE) MEDS Current Meds: Current Medications Lactated Ringer's (Ringers, Lactated) 1,000 mls @ 125 mls/hr IV ASDIRECTED DARA Discontinued Medications Cefoxitin Sodium 2 gm/ Premix 50 mls @ 100 mls/hr IV ONETIME ONE Stop: 09/13/19 07:29
[2019-09-13] MEDS ORDERED: Propofol 200 MG/20 ML SDV ONE ×3 (10:24→11:59)
[2019-09-13] MEDS ORDERED: Ondansetron 4 MG/2 ML SDV ONE (10:24)
[2019-09-13] MEDS ORDERED: fentaNYL 100 MCG/2 ML SDV ONE (10:25)
[2019-09-13] MEDS ORDERED: Midazolam 1 MG/ML 2 ML SDV ONE (10:25)
[2019-09-13] MEDS ORDERED: cefOXitin 1 GM Vial ONE (11:32)
[2019-09-13] MEDS ORDERED: Sodium Chloride 0.9% 20 ML ONE (11:32)
--- NOTE | 2019-09-13 12:20 | PCM.OPNOTE ---
- General Post-Op/Procedure Note Date of Surgery/Procedure: 09/13/19 Operative Procedure(s): Colonoscopy with multiple cold polypectomies from the ascending colon, mid and distal transverse colon, sigmoid colon and rectum. Pre Op Diagnosis: Personal history of colon polyps. Post-Op Diagnosis: Ascending colon, transverse colon, sigmoid and rectal polyps. Sigmoid diverticulosis. Anesthesia Technique: MAC (ASA II) Primary Surgeon: Terry Ferrer Condition: Good Free Text/Narrative:: DICTATION [id number] CPT CODE 07113
[2019-09-13] MEDS ORDERED: Lactated Ringers 1,000 ML IV SCH (12:30)
[2019-09-13 12:35] VITALS: PULSE 62
[2019-09-13 12:51] VITALS: BP 114/66
--- NOTE | 2019-09-13 14:34 | PCM.POSTAN ---
POST ANESTHESIA ASSESSMENT - MENTAL STATUS Mental Status: Alert, Oriented - VITAL SIGNS Vital Signs: Last Vital Signs Temp 97.2 F 09/13/19 12:45 Pulse 62 09/13/19 12:45 Resp 16 09/13/19 12:45 BP 114/66 09/13/19 12:45 Pulse Ox 96 09/13/19 12:45 - RESPIRATORY Respiratory Status: Respiratory Rate WNL, Airway Patent, O2 Saturation Stable - CARDIOVASCULAR CV Status: Pulse Rate WNL, Blood Pressure Stable - GASTROINTESTINAL GI Status: No Symptoms - POST OP HYDRATION Hydration Status: Adequate & Stable
--- NOTE | 2019-09-13 14:35 | PCM48HPAN ---
Post Anesthesia Note - EVALUATION WITHIN 48HRS OF ANESTHETIC Vital Signs in Normal Range: Yes Patient Participated in Evaluation: Yes Respiratory Function Stable: Yes Airway Patent: Yes Cardiovascular Function Stable: Yes Hydration Status Stable: Yes Pain Control Satisfactory: Yes Nausea and Vomiting Control Satisfactory: Yes Mental Status Recovered: Yes Vital Signs: Last Vital Signs Temp 97.2 F 09/13/19 12:45 Pulse 62 09/13/19 12:45 Resp 16 09/13/19 12:45 BP 114/66 09/13/19 12:45 Pulse Ox 96 09/13/19 12:45
--- NOTE | 2019-09-13 15:40 | OR ---
SURGEON: Terry Ferrer M.D. DATE OF PROCEDURE: 09/13/2019 OPERATION PERFORMED: Colonoscopy with multiple cold polypectomies from the ascending colon, mid and distal transverse colon, sigmoid colon, and rectum. PRIMARY SURGEON: Terry Ferrer MD ANESTHESIA: MAC. ASA CLASSIFICATION: II. PREOPERATIVE DIAGNOSES: 1. Personal history of colon polyps. 2. Family history of colon cancer in her maternal uncle, mother, and brother. POSTOPERATIVE DIAGNOSES: 1. Multiple polyps noted in the ascending colon, mid and distal transverse colon, sigmoid colon, and rectum. 2. Sigmoid diverticulosis. DESCRIPTION OF PROCEDURE: The patient was taken to the endoscopy room and positioned on the endoscopy table in the left lateral decubitus position. Time-out was called for appropriate identification of the patient and procedure. Monitored anesthesia care was provided. The colonoscope was inserted into the rectum and advanced with minimal difficulty to the cecum where the colonoscope was retroflexed to visualize the ascending colon from below. The colonoscope was then straightened and slowly withdrawn. One polyp was encountered in the ascending colon and this was removed with the cold biopsy forceps. The remainder of the ascending colon, hepatic flexure, and proximal transverse colon showed no tumors, polyps, or diverticula. Polyps were again encountered in the mid and distal transverse colon and these were removed separately and sent for histologic analysis. The splenic flexure and descending colon showed no tumors or polyps. Sigmoid colon demonstrated a few scattered diverticula. Polyps were encountered in the sigmoid colon and removed and sent for separate histologic analysis as were polyps from the rectum. Once the colonoscope was withdrawn to the distal rectum, it was retroflexed to visualize the anal orifice from above. No tumors, polyps, or acute hemorrhoidal changes were noted. The colonoscope was then straightened, the rectum aspirated, and the colonoscope removed. The patient did tolerate the procedure well and was taken to recovery room in satisfactory condition. EDILBERTO / MARCK /[id number]
== END 2019-09-13 13:15 | disposition home or self-care (01) ==
LOC: MW.SDS 08:32
PROVIDERS: ATTEND Surgery
DX: Z12.11 Encounter for screening for malignant neoplasm of colon (principal); D12.2 Benign neoplasm of ascending colon; K62.1 Rectal polyp; K57.30 Diverticulosis of large intestine without perforation or abscess without bleeding; F41.9 Anxiety disorder, unspecified; E78.5 Hyperlipidemia, unspecified; E66.01 Morbid (severe) obesity due to excess calories; K21.9 Gastro-esophageal reflux disease without esophagitis; F17.210 Nicotine dependence, cigarettes, uncomplicated; Z68.41 Body mass index [BMI] 40.0-44.9, adult; Z86.010 Personal history of colon polyps; Z79.899 Other long term (current) drug therapy; Z80.0 Family history of malignant neoplasm of digestive organs; Z98.890 Other specified postprocedural states; Z72.89 Other problems related to lifestyle
CPT/HCPCS: 45380; J0694; J2250; J2405; J2704; J3010; J7120; 88305

== ENCOUNTER 2022-10-21 10:14 | Day surgery (SDC) | payer BC ==
[~2022-10-21 10:14] MED LIST changes: -cefOXitin 2 GM in Premix Bag 1 BAG IV ONE
[2022-10-21] MEDS ORDERED: Propofol 200 MG/20 ML SDV ONE ×3 (11:10→11:37)
[2022-10-21] MEDS ORDERED: Phenylephrine HCl 0.5 MG/5 ML AMP ONE (11:45)
[2022-10-21] MEDS ORDERED: Lactated Ringers 1,000 ML IV SCH (12:30)
[2022-10-21 13:16] VITALS: BP 131/65; PULSE 64
== END 2022-10-21 13:10 | disposition home or self-care (01) ==
LOC: MW.SDS 10:14
PROVIDERS: ATTEND Surgery
DX: Z12.11 Encounter for screening for malignant neoplasm of colon (principal); D12.0 Benign neoplasm of cecum; D12.2 Benign neoplasm of ascending colon; D12.3 Benign neoplasm of transverse colon; D12.4 Benign neoplasm of descending colon; K62.1 Rectal polyp; K57.30 Diverticulosis of large intestine without perforation or abscess without bleeding; M17.0 Bilateral primary osteoarthritis of knee; F41.9 Anxiety disorder, unspecified; E78.5 Hyperlipidemia, unspecified; E66.01 Morbid (severe) obesity due to excess calories; R03.0 Elevated blood-pressure reading, without diagnosis of hypertension; F17.210 Nicotine dependence, cigarettes, uncomplicated; Z80.0 Family history of malignant neoplasm of digestive organs; Z79.899 Other long term (current) drug therapy; Z98.51 Tubal ligation status; Z98.890 Other specified postprocedural states; Z68.37 Body mass index [BMI] 37.0-37.9, adult; Z96.653 Presence of artificial knee joint, bilateral
CPT/HCPCS: 45380; 45381; J2370; J2704; J7120; 00811